=== PATIENT | male | born 1935 | race African-American/Black ===

== ENCOUNTER 2019-08-19 22:21 | Emergency (ER) | payer MEDICARE, BC ==
[~2019-08-19] VITALS: Ht 190.5 cm; Wt 113.0 kg
[2019-08-19] MEDS ORDERED: ASPIRIN 81MG TABLET PO ONE (23:30)
[2019-08-20 01:04] LABS: BASOPHILS % 0.2 % (0.0-2.0); EOSINOPHILS % 0.1 % (0.0-5.0); HEMATOCRIT. 43.1 % (42.0-52.0); HEMOGLOBIN. 14.4 g/dL (14.0-18.0); LYMPHOCYTES % 16.4 % (20.0-50.0); MEAN CORPUSCULAR HEMOGLOBIN 32.2 pg (28.0-32.0); MEAN CORPUSCULAR VOLUME 96.5 fL (80.0-94.0); MEAN PLATELET VOLUME 9.9 fl (7.4-10.4); NEUTROPHILS % 71.3 % (40.0-76.0); PLATELET 113 x1000/uL (130-400); RED BLOOD CELL COUNT 4.47 mill/uL (4.7-6.1); RED CELL DISTRIBUTION WIDTH 14.5 % (11.6-14.6)
[2019-08-20 01:08] LABS: CHLORIDE 101 mEq/L (98-107)
[2019-08-20 04:40] VITALS: BP 128/74
[2019-08-20 05:04] LABS: CLARITY URINE CLEAR (CLEAR); COLOR URINE DARK YELLOW (YELLOW); KETONES URINE TRACE (NEGATIVE); LEUKOCYTE ESTERASE URINE NEGATIVE (NEGATIVE); NITRITE URINE NEGATIVE (NEGATIVE); OCCULT BLOOD URINE NEGATIVE (NEGATIVE); PROTEIN URINE 2+ (NEGATIVE); SPECIFIC GRAVITY URINE 1.024 (1.005-1.030)
== END 2019-08-20 04:40 | disposition home or self-care (01) ==
LOC: ER 22:21 → EDBD 22:21 → ER 08-20 04:40
DX: U07.1 COVID-19 (principal); R53.1 Weakness; E11.9 Type 2 diabetes mellitus without complications; I10 Essential (primary) hypertension; Z88.8 Allergy status to other drugs, medicaments and biological substances
CPT/HCPCS: 36415; 71045; 80053; 81003; 83880; 84484; 85025; 93005; 99285; C9803; U0003